=== PATIENT | female | born 1965 | race African-American/Black ===

== ENCOUNTER 2023-02-06 22:34 | Emergency (ER) | payer OTHER ==
[~2023-02-06] VITALS: Ht 165.1 cm; Wt 75.0 kg
[2023-02-06] MEDS ORDERED: KETOROLAC TROMETHAMINE 60 MG/2 ML VIAL IM ONE (23:45)
[2023-02-07 01:18] LABS: COVID AG,FIA SOURCE NASOPHARYNGEAL
[2023-02-07 01:39] LABS: INFLUENZA TYPE A NEGATIVE FOR TYPE A (NEGATIVE); INFLUENZA TYPE B NEGATIVE FOR TYPE B (NEGATIVE)
[2023-02-07 03:00] VITALS: BP 111/59
== END 2023-02-07 03:23 | disposition home or self-care (01) ==
LOC: EMS 22:36
DX: R51.9 Headache, unspecified (principal); J11.1 Influenza due to unidentified influenza virus with other respiratory manifestations; Z20.822 Contact with and (suspected) exposure to COVID-19
CPT/HCPCS: 99283; 87426; 87804; 96372; J1885